=== PATIENT | female | born 1990 | race Two or more races ===

== ENCOUNTER → 2025-05-08 10:30 | Outpatient (REF) | payer OTHER, SELFPAY ==
--- NOTE | ~2025-05-08 | NM_ITS ---
EXAMINATION: NM THYROID IMAGING AND UPTAKE CLINICAL INFORMATION: SUBCLINICAL HYPERTHYROIDISM COMPARISON: There are no prior studies available for comparison. TECHNIQUE: Following the oral administration of 273 microcuries of I-123 sodium iodide, thyroid uptake was performed and expressed as a percentage of the administrated dose. Gamma scintillation camera images of the thyroid in the anterior and right and left anterior oblique views were obtained using a pinhole collimator following the administration of 10 mCi Tc-99m pertechnetate. FINDINGS: Images demonstrate globally decreased activity on the right. There is the suggestion of a large cold nodule at the upper pole of the left thyroid lobe. Possible hot nodule at the lower pole. The uptake is 1.08% at 3 hours and 21.23% at 24 hours. NM/NM thyroid w uptake IMPRESSION: 1. Globally decreased activity of the right thyroid lobe with possible cold and hot nodules on the left. Correlation with ultrasound is recommended. 2. Decreased uptake at 3 hours, but normal uptake and 24 hours. Electronically signed by: Dhruv Joya MD 05/09/2025 12:24 PM [facility]
== END ==
LOC: HO.NUCMED 10:30
PROVIDERS: PCP Internal Medicine; Visit Provider Internal Medicine Endocrinology, Diabetes & Metabolism
DX: E05.90 Thyrotoxicosis, unspecified without thyrotoxic crisis or storm (principal)
CPT/HCPCS: 78014; A9512; A9516

== ENCOUNTER → 2025-05-08 10:45 | Outpatient (BNV) | payer OTHER, SELFPAY | PROVIDERS: PCP Internal Medicine; Visit Provider Radiology Diagnostic Radiology | DX: E05.90 Thyrotoxicosis, unspecified without thyrotoxic crisis or storm (principal) | CPT/HCPCS: 78014 ==